=== PATIENT | male | born 1940 | race Caucasian/White ===

== ENCOUNTER → 2016-12-26 | Day surgery (SDC) | payer MEDICARE ==
[~2016-12-26] MED LIST: ALEVE220 M1 PO; ASPIRIN EC81 M1 PO; HYTRIN PO; LISINOPRIL20 MG PO; LISINOPRIL30 MG PO; PRAVACHOL PO; PRAVASTATIN SOD40 MG PO
--- NOTE | ~2016-12-26 | EKG ---
PATIENT: FRANKO TORRES UNIT #: [id number] Ventricular Rate: 78 BPM Atrial Rate: 78 BPM P-R Interval: 170 ms QRS Duration: 84 ms Q-T Interval: 366 ms QTC Calculation(Bezet): 417 ms P [place]: 33 degrees Calculated R [place]: 39 degrees Calculated T [place]: 31 degrees Diagnosis Line: Normal sinus rhythm Diagnosis Line: Normal ECG Diagnosis Line: No previous ECGs available Diagnosis Line: Confirmed by JOSE WATERMAN MD ([id number]) on Diagnosis Line: 12/27/2016 4:37:13 PM INTERPRETING MD: SHAWNA
--- NOTE | ~2016-12-26 | OR ---
Unit #: [id number]: [id number] Patient: FRANKO TORRES [id number] [address] [place], [place] [address] [id number] MR#: [id number] NAME: FRANKO TORRES. ROOM: Date of Procedure: 12/26/2016 Admission Date: 12/26/2016 Surgeon: Matheus Bell M.D. : 1940 Attending Physician: Matheus Bell M.D. Primary Care Physician: Mukesh Tom M.D. OPERATIVE REPORT PREOPERATIVE DIAGNOSIS Recurrent small bladder tumor. POSTOPERATIVE DIAGNOSIS Recurrent small bladder tumor. PROCEDURES PERFORMED Cystoscopy, bladder biopsy, fulguration. ANESTHESIA General with local supplementation. INDICATIONS FOR PROCEDURE This is a 76-year-old man with recurrent low-grade bladder cancer, was noted to have a blanket of early tumor formation in June and has electively postponed treatment until today without complications. Note preoperative discussion included in reference to his BPH whether he has required catheters before or after surgery and it is thought unlikely that he will need one. DESCRIPTION OF PROCEDURE The patient was given preoperative antibiotics and satisfactory general anesthesia. In the dorsal lithotomy position, routine prep and drape were performed. 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 The bladder was examined and noted to be 1+ trabeculated and the changes were difficult to appreciate entirely with the 30-degree lens unless the bladder was filled and the scope was torqued over the prostate in the crevice between the third lobe and right lobe. This did confirm previous findings, however, namely early papillary tumor formation from the right ureteral orificial area to the bladder neck. This was surrounded by areas of scar consistent with previous treatments. I placed a cold cup biopsy forceps, and was unable to biopsy the main area of tumor due to the presence of the BPH and the bladder neck anatomy, obscuring tumor when pulling back sufficiently for biopsy. I was, however, able to biopsy an area closer to the trigone. This seems sufficient for sampling as it does appear to be indolent superficial disease. I then placed a 24 resectoscope so as not to aggravate his stricture and used a 3 mm rollerball at initial setting of 20 coag which was turned down to 15 to gently but completely fulgurated all suspicious Unit #: [id number] #: [id number] Patient: FRANKO TORRES mucosa. The mucosa did abut the right ureteral orifice. I elected not to cauterize the orifice or consider ureteroscopy at this time as the patient has a recent negative dedicated upper tract study with contrast ruling out any ureteral disease. At this point, reinspecting for hemostasis and with no untreated suspicious mucosa of the bladder was drained. The resectoscope removed and a Uro-jet applied. One week followup as planned. Dictated by... Veronica Ghosh/lydia TD: 12/26/2016 16:17 JOB #: [id number] CC: Mukesh Tom M.D. OPERATIVE REPORT Page 1 of 1 X Matheus Bell MD X PROCEDURE OPERATIVE NOTE
[2016-12-26 07:21] LABS: BUN/CREATININE RATIO 21.25; CALCIUM SERUM 10.2 mg/dL (8.4-10.2); CREATININE SERUM 0.8 mg/dL (0.6-1.4); GLOM FILT RATE Estimated 87.4 mL/min (>60); POTASSIUM 4.2 mmol/L (3.5-5.1)
== END | disposition home or self-care (01) ==
LOC: CSUR 12-13 12:00
PROVIDERS: Urology
DX: C67.0 Malignant neoplasm of trigone of bladder (principal); N40.0 Benign prostatic hyperplasia without lower urinary tract symptoms; I10 Essential (primary) hypertension; F17.200 Nicotine dependence, unspecified, uncomplicated
CPT/HCPCS: 80048; 88305; 93005; C1887; J0690; J2405; J3010